=== PATIENT | female | born 1995 | race Caucasian/White ===

== ENCOUNTER → 2021-12-08 | Outpatient (CLI) | payer OTHER ==
--- NOTE | 2021-12-08 16:02 | US ---
EXAMINATION TYPE: US OB anatomy transabd DATE OF EXAM: 12/08/2021 COMPARISON: NONE HISTORY: O36.62X0 Maternal care for excessive growth, TECHNIQUE: Transabdominal (TA) EXAM MEASUREMENTS: GESTATIONAL AGE / DATING Physician Established: (21 weeks/5 days) EDC: 04/15/2022 Dates by LMP: (21 weeks/5 days) EDC: 04/15/2022 Dates by First Scan: No previous this is first scan Dates by Current Scan for: (22 weeks/2 days) EDC: 04/11/2022 SURVEY IUP: Single PLACENTA: Fundal PREVIA: No previa GAVIN: 12.5 cm Normal CERVICAL LENGTH (transabdominal: norm > 3.0cm): 4.7 cm BIOMETRY PRESENTATION: Breech BPD: 5.2 cm 21 weeks / 6 days HC: 19.4 cm 21 weeks / 5 days AC: 17.6 cm 22 weeks / 4 days FL: 3.9 cm 22 weeks / 4 days ESTIMATED WEIGHT IN GRAMS: 499 grams ESTIMATED WEIGHT IN LBS/OZ: 1 lbs. 2 oz. WEIGHT PERCENTAGE BASED ON ESTABLISHED DATE: 78 % HC/AC: 1.1 Normal FL/AC: 22% Normal HEART RATE: 150 bpm RHYTHM: Normal ANATOMY SEEN (within normal limits): * Lateral Vent (< 1 cm) 0.6 cm * Cisterna Magna (< 1.1 cm) 0.7 cm * Nuchal Fold (< 0.6 cm) 0.3 cm * Cerebellum (varies with age) 2.2 cm Choroid Plexus (bilateral) Midline Falx Cavus Septi Pellucidi Four Chamber Heart Outflow tracts: LVOT/RVOT Stomach Situs Nose / Lips Diaphragm Kidneys (bilateral) Bladder Cord Insert Three Vessel Cord Longitudinal Spine Transverse Spine Arms (bilateral) Legs (bilateral) Growth according to dates. IMPRESSION: 1. Single intrauterine gestation at 22 weeks 2 days gestation based on current ultrasound measurement s. Cardiac activity measures 150 bpm. 2. anatomy appears appropriate for the age.
== END | disposition home or self-care (01) ==
LOC: RADUSWWP 09:32
PROVIDERS: ATTEND Obstetrics & Gynecology
DX: O36.62X0 Maternal care for excessive fetal growth, second trimester, not applicable or unspecified (principal); Z3A.22 22 weeks gestation of pregnancy
CPT/HCPCS: 76811

== ENCOUNTER 2022-03-12 15:30 | Outpatient (CLI) | payer OTHER ==
--- NOTE | 2022-03-12 16:33 | US ---
EXAMINATION TYPE: US OB >= 14 wk fetus DATE OF EXAM: 03/12/2022 COMPARISON: US CLINICAL HISTORY: Complete OB ultrasound Syncopal episode for pt TECHNIQUE: Transabdominal (TA) GESTATIONAL AGE / DATING Physician Established: (35 weeks/1 days) EDC: 04/15/2022 Dates by LMP: (35 weeks/1 days) EDC: 04/15/2022 Dates by First Scan: (35 weeks/5 days) EDC: 04/11/2022 Dates by Current Scan: (36 weeks/2 days) EDC: 04/07/2022 SURVEY IUP: Single PLACENTA: Fundal PREVIA: No Previa GAVIN: 16.5 cm Normal CERVICAL LENGTH (transabdominal: norm > 3.0cm): 3.2 cm BIOMETRY PRESENTATION: Vertex BPD: 9.1 cm 36 weeks / 6 days HC: 32.4 cm 36 weeks / 5 days AC: 32.7 cm 36 weeks / 4 days FL: 7.1 cm 36 weeks / 4 days ESTIMATED WEIGHT IN GRAMS: 2988 grams ESTIMATED WEIGHT IN LBS/OZ: 6 lbs. 9 oz. WEIGHT PERCENTAGE BASED ON ESTABLISHED DATES: 86% HC/AC: 0.99 Normal FL/AC: 22 Normal HEART RATE: 135 bpm RHYTHM: Abnormal Single, viable IUP- heart arrythmia noted during exam Results given to L&D at time of exam IMPRESSION: Single viable intrauterine with limited survey. Ultrasound age 36 weeks 2 days with e stimated date of delivery 04/07/2022. Technologist reports cardiac arrhythmia.
[2022-03-12 18:22] VITALS: BP 123/79; PULSE 101; RESP 16; TEMP 97.2
--- NOTE | 2022-03-13 07:35 | P.MSEPDOC ---
Presenting Problems - Arrival Data Date of Arrival on Unit: 03/12/22 Time of Arrival on Unit: 15:30 Mode of Transport: Ambulatory - Complaint OB-Reason for Admission/Chief Complaint: Syncope/Fainting Spell Comment: Patient presents to triage because she has been feeling unwell all day today and while she was at work she almost passed out about 1 hour after eating lunch. Patient states she remains dizzy and just does not feel good. Medical History - Information : 2 Para: 0 Term: 0 : 0 Abortions: Spontaneous or Elective: 0 Number of Living Children: 0 - Gestational Age Gestational Age by RADHA (wks/days): 35 Weeks and 1 Days Review of Systems - Review of Systems Constitutional: No problems Breast: No problems ENT: No problems Cardiovascular: No problems Respiratory: No problems Gastrointestinal: No problems Genitourinary: No problems Musculoskeletal: No problems Neurological: No problems Skin: No problems Vital Signs - Temperature Temperature: 97.2 F Temperature Source: Temporal Artery Scan - Pulse Pulse Oximetery Pulse Rate: 101 Pulse Assessment Method: Pulse Oximetry - Respirations Respiratory Rate: 16 Oxygen Delivery Method: Room Air O2 Sat by Pulse Oximetry: 99 - Blood Pressure Sitting Blood Pressure: 123/79 Blood Pressure Mean: 93 Blood Pressure Source: Automatic Cuff Medical Screen Scoring - Cervical Exam Dilation (cm): 0 Effacement (%): 0 Membranes: Intact - Uterine Contractions Intensity: Mild Resting: Soft to palpation - Assessment - Baby A Baseline FHR: 135 Heart Rate - NICHD Category: Category II (Indeterminate) NST: Reactive Physician Notification - Physician Notified Physician Notified Date: 03/12/22 Physician Notified Time: 15:59 Physician: Mona Dodson New Order Received: Yes - Notification Comment Comment: Orders given to obtain a complete OB U/S and call with results. 164: Discussed with Dr. Dodson that initial NST is not Reactive, and that two late decelerations were noted with irregular contractions, Physician states okay for patient to drink water and physician will come in for evaluation after office. 180 Dr. Dodson at bedside, discusses with patient that she would like to see her in the office on Sat. for her [facility] appt to re-evaluate if the arrhythmia is still present, and then if it is to refer her to [facility] for further evaluation, patient agrees with plan. Maternal Triage Index - Non-Urgent/Priority 4 Non-Urgent Priority 4: Yes Criteria Met for Priority 4: 35 12/01 Patient presents feeling unwell at work, states she almost passed out about an hour after eating lunch and still does not feel well. Vital signs all within normal limits, arrhythmia noted on u/s. Disposition - Disposition OB Disposition: Discharge to home, Written follow up instructions reviewed Discharge Date: 03/12/22 Discharge Time: 18:11 I agree with the RN Medical Screening Exam: Yes Physician's MSE Comment: I reviewed the strips on the unit and discussed the arrhythmia with the patient and her . She has been using [employer] Misty butter regularly on her abdomen. I advised her to stop using Misty butter for the time being as this can be a cause of arrhythmia. She will follow up with me in the office in 2 days and be placed on NST in the office to further evaluate the arrhythmia. If it is still present, she will be referred to maternal medicine for further evaluation. She is advised to take it easy the rest today and drink linea fluids. Her vital signs are all within normal limits. Case reviewed; plan agreed upon as documented in EMR&OBIX.: Yes Diagnosis: SYNCOPE AND COLLAPSE Additional Diagnoses: arrhythmia
== END 2022-03-12 18:11 | disposition home or self-care (01) ==
LOC: FBPOP 15:30
PROVIDERS: ATTEND Obstetrics & Gynecology
DX: O26.893 Other specified pregnancy related conditions, third trimester (principal); Z3A.35 35 weeks gestation of pregnancy
CPT/HCPCS: 59025; 76805; 99213

== ENCOUNTER 2022-03-20 11:30 | Outpatient (CLI) | payer OTHER ==
[2022-03-20] MEDS ORDERED: BETAMET ACET-BETAMETH SOD PHOS 6 MG/ML MDV IM SCH (11:45)
--- NOTE | 2022-03-21 07:43 | P.MSEPDOC ---
Presenting Problems - Arrival Data Date of Arrival on Unit: 03/20/22 Time of Arrival on Unit: 11:30 Mode of Transport: Ambulatory - Complaint OB-Reason for Admission/Chief Complaint: Celestone Injection Medical History - Information : 2 Para: 0 Term: 0 : 0 Abortions: Spontaneous or Elective: 1 Number of Living Children: 0 - Gestational Age Gestational Age by RADHA (wks/days): 36 Weeks and 2 Days Review of Systems - Review of Systems Constitutional: No problems Breast: No problems ENT: No problems Cardiovascular: No problems Respiratory: No problems Gastrointestinal: No problems Genitourinary: No problems Musculoskeletal: No problems Neurological: No problems Skin: No problems Maternal Triage Index - Maternal Triage Index Presenting for scheduled procedure w/no complaint: Yes - Scheduled/Requesting Priority 5 Scheduled/Requesting Priority 5: Yes Criteria Met for Priority 5: pt presents to triage with written orders for 2nd betamethasone injection Disposition - Disposition OB Disposition: Triage, Discharge to home Discharge Date: 03/20/22 Discharge Time: 11:55 I agree with the RN Medical Screening Exam: Yes Case reviewed; plan agreed upon as documented in EMR&OBIX.: Yes Diagnosis: MATERNAL CARE FOR OTH PROBLEMS, THIRD TRIMESTER, UNSP
== END 2022-03-20 11:55 | disposition home or self-care (01) ==
LOC: FBPOP 11:30
PROVIDERS: ATTEND Obstetrics & Gynecology
DX: O36.8930 Maternal care for other specified fetal problems, third trimester, not applicable or unspecified (principal); Z3A.36 36 weeks gestation of pregnancy
CPT/HCPCS: 96372; J0702

== ENCOUNTER 2022-04-02 09:58 | Outpatient (CLI) | payer OTHER ==
[2022-04-02 11:07] VITALS: BP 111/71; PULSE 87; RESP 16; TEMP 97.2
--- NOTE | 2022-04-02 11:23 | US ---
EXAMINATION TYPE: US OB BPP wo non-stress DATE OF EXAM: 04/02/2022 COMPARISON: Prior ultrasound March 12, 2022 CLINICAL HISTORY: Arrhythmia. EXAM PERFORMED: Transabdominal (TA) BPP PARAMETERS: PRESENTATION: vertex HEART RATE: 144 bpm RHYTHM: Arrhythmia seen previously, not appreciated on today's exam GAVIN: 12.1 DIAPHRAGM IMAGED: BPP SCORIN. Breathin (1 episode of breathing of 30 second duration in 30 minutes of scanning time) 2. Movement: 2 (at least 3 discrete body movements in 30 minutes) 3. Tone: 2 (1 episode of active flexion/extension of limb) 4. GAVIN: 2 (GAVIN index > 5cm) TOTAL SCORE: 8 / 8 Impression: Normal real-time NST.
== END 2022-04-02 10:58 | disposition home or self-care (01) ==
LOC: FBPOP 09:58
PROVIDERS: ATTEND Obstetrics & Gynecology
DX: O36.8390 Maternal care for abnormalities of the fetal heart rate or rhythm, unspecified trimester, not applicable or unspecified (principal); Z3A.00 Weeks of gestation of pregnancy not specified
CPT/HCPCS: 59025; 76819

== ENCOUNTER 2022-04-17 01:01 | Outpatient (CLI) | payer OTHER ==
[2022-04-17 02:48] VITALS: BP 123/67; PULSE 72; RESP 16; TEMP 96.4
--- NOTE | 2022-04-18 07:39 | P.MSEPDOC ---
Presenting Problems - Arrival Data Date of Arrival on Unit: 04/17/22 Time of Arrival on Unit: 01:01 Mode of Transport: Ambulatory - Complaint OB-Reason for Admission/Chief Complaint: Possible Onset of Labor Comment: Patient arrives to triage and states she has been having contractions since. 9pm. She states contractions are currently 4.5 minutes apart. Patient appears. comfortable at this time. Patient had a cervical exam on and was 0.5cm. dilitated. Medical History - Information : 2 Para: 0 Term: 0 : 0 Abortions: Spontaneous or Elective: 1 Number of Living Children: 0 - Gestational Age Gestational Age by RADHA (wks/days): 40 Weeks and 2 Days - History Complications: No Care Review of Systems - Review of Systems Constitutional: No problems Breast: No problems ENT: No problems Cardiovascular: No problems Respiratory: No problems Gastrointestinal: No problems Genitourinary: No problems Musculoskeletal: No problems Neurological: No problems Skin: No problems Vital Signs - Temperature Temperature: 96.4 F Temperature Source: Temporal Artery Scan - Pulse Right Brachial Pulse Rate: 72 Pulse Assessment Method: Automatic Cuff - Respirations Respiratory Rate: 16 Oxygen Delivery Method: Room Air - Blood Pressure Right Arm Blood Pressure: 123/67 Blood Pressure Mean: 85 Blood Pressure Source: Automatic Cuff Medical Screen Scoring - Cervical Exam Dilation (cm): 0.5 Station: -3 Membranes: Intact - Uterine Contractions Frequency From (mins): 3 Frequency To (mins): 7 Duration From (seconds): 60 Duration To (seconds): 90 Intensity: Mild Resting: Soft to palpation - Assessment - Baby A Baseline FHR: 135 Heart Rate - NICHD Category: Category I (Normal) NST: Reactive Physician Notification - Physician Notified Physician Notified Date: 04/17/22 Physician Notified Time: 02:21 Physician: Angélica Leach New Order Received: Yes - Notification Comment Comment: RN spoke with Dr. Leach. RN reported that patient was ulysses every 4-7. minutes, reactive NST, cervical exam of 0.5, thick and high unchanged after one hour. Patient was sleeping in exam room before second cervical exam. Patient reports feeling. more comfortable. Patient is to be discharged with instructions to return if. contractions increase in strength or frequency. Patient is scheduled for cevidil. induction on 04/18. Patient updated on plan Maternal Triage Index - Maternal Triage Index Presenting for scheduled procedure w/no complaint: No - Stat/Priority 1 Stat Priority 1: No - Urgent/Priority 2 Urgent Priority 2: No - Prompt/Priority 3 Prompt Priority 3: No - Non-Urgent/Priority 4 Non-Urgent Priority 4: Yes Criteria Met for Priority 4: >37 weeks early labor signs Disposition - Disposition OB Disposition: Discharge to home Discharge Date: 04/17/22 Discharge Time: 02:40 I agree with the RN Medical Screening Exam: Yes Case reviewed; plan agreed upon as documented in EMR&OBIX.: Yes Diagnosis: PRIMARY INADEQUATE CONTRACTIONS
== END 2022-04-17 02:40 | disposition home or self-care (01) ==
LOC: FBPOP 01:01
PROVIDERS: ATTEND Obstetrics & Gynecology
DX: O62.0 Primary inadequate contractions (principal); Z3A.40 40 weeks gestation of pregnancy
CPT/HCPCS: 59025; 99213

== ENCOUNTER 2022-04-18 17:00 | Inpatient (IN) | payer OTHER ==
--- NOTE | 2022-04-18 13:53 | P.HPOB ---
History of Present Illness H&P Date: 04/18/22 Chief Complaint: arrhythmia This is a 26 y.o. female, 2, para 0, with an estimated date of confinement of 04/15/2022, estimated gestational age of 40-3/7 weeks, who presents for induction of labor due to postdates and arrhythmia. She was diagnosed with arrhythmia at 35 weeks and was seen by MFM who did echo that was normal. They are recommending a EKG. arrhythmia has mostly resolved at this time. She did receive 2 doses of steroids at around 35 weeks. labs: Hemoglobin-12.9 Blood type-O+ Antibody screen-neg HIV-NR Random glucose-63 RPR-NR Hepatitis B surface antigen-neg Rubella-immune Quad-neg 1 hr. GTT-118. GBS-neg OB Hx: . History of ectopic. Hx R. salpingectomy-2019 [employer] Hx: No hx STDs. Social Hx: . Works part-time Review of Systems Constitutional: Denies chills, Denies fever Eyes: denies blurred vision, denies pain Ears, nose, mouth and throat: Denies headache, Denies sore throat Cardiovascular: Denies chest pain, Denies shortness of breath Respiratory: Denies cough Gastrointestinal: Reports abdominal pain (irregular contractions) Genitourinary: Reports pelvic pain, Reports Musculoskeletal: Reports low back pain Integumentary: Denies pruritus, Denies rash Neurological: Denies numbness, Denies weakness Psychiatric: Reports anxiety, Reports depression Past Medical History Additional Past Medical History / Comment(s): PTSD; Hx cleft palate History of Any Multi-Drug Resistant Organisms: None Reported Past Surgical History: Cholecystectomy Additional Past Surgical History / Comment(s): Repair of cleft palate; R. salpingectomy Past Anesthesia/Blood Transfusion Reactions: No Reported Reaction Past Psychological History: PTSD Smoking Status: Never smoker Past Alcohol Use History: None Reported Past Drug Use History: None Reported - Past Family History Father Family Medical History: Hyperlipidemia, Hypertension Medications and Allergies Home Medications Medication Instructions Recorded Confirmed Type Pnv No.95/Ferrous Fum/Folic AC 1 each PO DAILY 03/12/22 04/17/22 History [ Multivitamin Tablet] Sertraline [Zoloft] 25 mg PO BID 03/12/22 04/17/22 History Allergies Allergy/AdvReac Type Severity Reaction Status Date / Time Penicillins Allergy Unknown Verified 04/17/22 01:02 Childhood shellfish derived [Shellfish] Allergy Rash/Hives Verified 04/17/22 01:02 Exam Osteopathic Statement: *. No significant issues noted on an osteopathic structural exam other than those noted in the History and Physical/Consult. HEENT: within normal limits Heart: regular rate and rhythm Lungs: clear to auscultation bilaterally Abdomen: Cervix: FT/70%/-2 heart tones: 140's by doppler Extremities: neg. Judit's Assessment and Plan (1) 40 weeks gestation of Status: Acute Code(s): Z3A.40 - 40 WEEKS GESTATION OF SNOMED Code(s): 61457849 (2) Arrhythmia of fetus affecting management of Status: Acute Code(s): O36.8390 - MATERN CARE FOR ABNLT FETL HRT RATE OR RHYM, UNSP TRI, UNSP SNOMED Code(s): 753307553 Plan: Admission for cervidil cervical ripening followed by oxytocin induction of labor. Expectant management.
[2022-04-18] MEDS ORDERED: BUTORPHANOL 1 MG/ML 1 ML VIAL IV PRN (17:28)
[2022-04-18] MEDS ORDERED: ZOLPIDEM 5 MG TAB PO PRN (17:28)
[2022-04-18] MEDS ORDERED: DINOPROSTONE 10 MG INSERT.ER VAGINAL ONE (17:45)
[2022-04-19] MEDS ORDERED: PRENATAL VIT-IRON-FOLIC ACID 1 EACH TABLET PO SCH (09:00)
== END 2022-04-18 18:21 | disposition home or self-care (01) | DRG 833 ==
LOC: 4FBP 17:20
PROVIDERS: ADMIT Obstetrics & Gynecology; ATTEND Obstetrics & Gynecology
PROC: 4A0HXCZ Measurement of Products of Conception, Cardiac Rate, External Approach (ICD-10-PCS; principal; 2022-04-18)
DX: O36.8330 Maternal care for abnormalities of the fetal heart rate or rhythm, third trimester, not applicable or unspecified (principal); O99.343 Other mental disorders complicating pregnancy, third trimester; F43.10 Post-traumatic stress disorder, unspecified; Z3A.40 40 weeks gestation of pregnancy; Z79.899 Other long term (current) drug therapy; Z87.730 Personal history of (corrected) cleft lip and palate; Z88.0 Allergy status to penicillin; Z91.013 Allergy to seafood; Z87.59 Personal history of other complications of pregnancy, childbirth and the puerperium; Z90.49 Acquired absence of other specified parts of digestive tract

== ENCOUNTER 2022-04-19 06:03 | Inpatient (IN) | payer OTHER ==
[2022-04-19] MEDS ORDERED: LIDOCAINE 0.5% (PF) 5 MG/ML (50 ML SDV) SQ PRN (06:14)
[2022-04-19] MEDS ORDERED: CARBOPROST TROMETHAMINE 250 MCG/ML 1 ML AMP IM PRN (06:14)
[2022-04-19] MEDS ORDERED: TERBUTALINE 1 MG/ML VIAL SQ PRN (06:14)
[2022-04-19] MEDS ORDERED: METHYLERGONOVINE 0.2 MG/ML 1 ML AMP IM PRN (06:14)
[2022-04-19] MEDS ORDERED: OXYTOCIN 10 UNIT/ML 1 ML VIAL IM PRN (06:14)
[2022-04-19] MEDS ORDERED: OXYTOCIN 30 UNITS/500 ML NS 30 UNIT in SALINE 1 500ML.BAG IV SCH ×2 (06:15→19:28)
[2022-04-19 06:24] VITALS: RESP 16
[2022-04-19 06:25] LABS: Basophils # (A) 0.1 k/uL (0-0.2); Basophils % (A) 1 %; Eosinophils # (A) 0.2 k/uL (0-0.7); Eosinophils % (A) 1 %; HCT 34.7 % (34.0-46.0); HGB 11.7 gm/dL (11.4-16.0); Lymphocytes # (A) 2.6 k/uL (1.0-4.8); Lymphocytes % (A) 21 %; MCH 31.6 pg (25.0-35.0); MCHC 33.6 g/dL (31.0-37.0); Mean Platelet Volume 8.5; Monocytes # (A) 0.7 k/uL (0-1.0); Monocytes % (A) 6 %; Neutrophils # (A) 8.9 k/uL (1.3-7.7); Neutrophils % (A) 71 %; Platelet Count 223 k/uL (150-450); RBC 3.69 m/uL (3.80-5.40); RDW 14.5 % (11.5-15.5); WBC 12.7 k/uL (3.8-10.6)
[2022-04-19] MEDS: LACTATED RINGERS 1,000 ML IV SCH ×2 (06:34→10:50)
[2022-04-19] MEDS ORDERED: BUTORPHANOL 1 MG/ML 1 ML VIAL IV PRN (07:30)
[2022-04-19] MEDS ORDERED: SODIUM CHLORIDE 0.9% 100 ML BAG ONE (10:54)
[2022-04-19] MEDS ORDERED: BUPIVACAINE (PF) 0.25% 30 ML VIAL ONE (10:54)
[2022-04-19] MEDS ORDERED: fentaNYL (PF) 50 MCG/ML 5 ML AMP ONE (10:54)
--- NOTE | 2022-04-19 17:48 | P.HPOB ---
History of Present Illness H&P Date: 04/19/22 Please see history and physical dated 04/18/2022. Patient was admitted for Cervidil cervical ripening on 04/18/2022 however was found to be dilated and therefore sent home overnight to return in the morning for oxytocin induction of labor. Her cervix at that time was noted to be 1-2 cm/60%/-2 station. She returned this morning for oxytocin induction of labor. All other history remains the same. Past Medical History Additional Past Medical History / Comment(s): PTSD; Hx cleft palate History of Any Multi-Drug Resistant Organisms: None Reported Past Surgical History: Cholecystectomy Additional Past Surgical History / Comment(s): Repair of cleft palate; R. salpingectomy Past Anesthesia/Blood Transfusion Reactions: No Reported Reaction Past Psychological History: PTSD Smoking Status: Never smoker Past Alcohol Use History: None Reported Past Drug Use History: None Reported - Past Family History Father Family Medical History: Hyperlipidemia, Hypertension Medications and Allergies Home Medications Medication Instructions Recorded Confirmed Type Pnv No.95/Ferrous Fum/Folic AC 1 each PO DAILY 03/12/22 04/19/22 History [ Multivitamin Tablet] Sertraline [Zoloft] 25 mg PO BID 03/12/22 04/19/22 History Allergies Allergy/AdvReac Type Severity Reaction Status Date / Time Penicillins Allergy Unknown Verified 04/19/22 06:14 Childhood shellfish derived [Shellfish] Allergy Rash/Hives Verified 04/19/22 06:14 Exam Osteopathic Statement: *. No significant issues noted on an osteopathic structural exam other than those noted in the History and Physical/Consult. Vital Signs Temp Pulse Resp BP Pulse Ox 04/19/22 06:13 97.0 F L 81 16 132/75 99 Intake and Output 04/19/22 04/19/22 04/19/22 06:59 14:59 22:59 Output Total 200 Balance -200 Output: Urine 200 Other: Weight 88.313 kg heart tones are category 1 with irregular contractions Results Result Diagrams: 04/19/22 06:10 Abnormal Lab Results - Last 24 Hours (Table) 04/19/22 Range/Units 06:10 WBC 12.7 H (3.8-10.6) k/uL RBC 3.69 L (3.80-5.40) m/uL Neutrophils # 8.9 H (1.3-7.7) k/uL Assessment and Plan (1) 40 weeks gestation of Current Visit: No Status: Acute Code(s): Z3A.40 - 40 WEEKS GESTATION OF SNOMED Code(s): 97620847 (2) Arrhythmia of fetus affecting management of Current Visit: No Status: Acute Code(s): O36.8390 - MATERN CARE FOR ABNLT FETL HRT RATE OR RHYM, UNSP TRI, UNSP SNOMED Code(s): 352888723 Plan: Admission for oxytocin induction of labor. Epidural anesthesia if desired. Expectant management.
[2022-04-19] MEDS ORDERED: ZOLPIDEM 5 MG TAB PO PRN (19:28)
[2022-04-19] MEDS ORDERED: SIMETHICONE 80 MG CHEWABLE PO PRN (19:28)
[2022-04-19] MEDS ORDERED: diphenhydrAMINE 50 MG/ML 1 ML VIAL IVP PRN ×2 (19:28)
[2022-04-19] MEDS ORDERED: HYDROCORTISONE 2.5% RECTAL CREAM 30 GM TUBE RECTAL PRN (19:28)
[2022-04-19] MEDS ORDERED: diphenhydrAMINE 50 MG CAP PO PRN (19:28)
[2022-04-19] MEDS ORDERED: LANOLIN CREAM 5 GM TUBE TOPICAL PRN (19:28)
[2022-04-19] MEDS ORDERED: diphenhydrAMINE 25 MG CAP PO PRN (19:28)
[2022-04-19] MEDS ORDERED: ACETAMINOPHEN TAB 325 MG TAB PO PRN (19:28)
[2022-04-19] MEDS ORDERED: BENZOCAINE/MENTHOL SPRAY 1 GM/SPRAY AEROSOL TOPICAL PRN (19:28)
--- NOTE | 2022-04-19 19:46 | P.PROBDLV ---
Vaginal Delivery Note - . Vaginal Delivery Note: The patient progressed to complete dilation after oxytocin induction of labor and artificial rupture membranes with meconium fluid noted. She did receive epidural anesthesia. Once reaching complete, she began pushing. She pushed for approximately 2 hours. Infant's head came to a crown. With one further push, the infant's head delivered across the perineum followed by the anterior shoulder. She was instructed to stop pushing. Nose and mouth were bulb suctioned at the perineum. With one further push the remainder the infant easily delivered and was placed on mother's abdomen. Nuchal cord times one was reduced around the body with delivery. Infant was then placed on mother's abdomen and cord was clamped and cut. It was then taken to warmer for evaluation by nursing staff. A viable male infant is noted with N infant weight of 9 lbs. 3 oz. scores are pending at this time. Placenta delivered shortly thereafter, intact, with a three-vessel cord. Uterus contracted fairly well after oxytocin was given and uterine massage was carried out. Inspection of the perineum revealed a second-degree perineal laceration and a left periurethral laceration. These areas were anesthetized with 1% lidocaine and then sutured with 3-0 and 2-0 Vicryl suture in the usual multilayer fashion. Estimated blood loss is approximately 200 mL's. Mother and infant are in stable condition.
[2022-04-19] MEDS: SENNOSIDES-DOCUSATE SODIUM 1 EACH TAB PO SCH (21:03)
[2022-04-19] MEDS: SERTRALINE 25 MG TAB PO SCH (21:04)
[2022-04-20] MEDS: IBUPROFEN 600 MG TAB PO PRN ×2 (05:23→13:50)
[2022-04-20 07:19] LABS: Basophils % (A) 0 %; Eosinophils # (A) 0.1 k/uL (0-0.7); Eosinophils % (A) 0 %; HCT 32.7 % (34.0-46.0); HGB 10.9 gm/dL (11.4-16.0); Lymphocytes % (A) 10 %; MCH 31.8 pg (25.0-35.0); MCHC 33.5 g/dL (31.0-37.0); Mean Platelet Volume 8.7; Monocytes # (A) 1.2 k/uL (0-1.0); Monocytes % (A) 6 %; Neutrophils # (A) 17.1 k/uL (1.3-7.7); Neutrophils % (A) 83 %; Platelet Count 189 k/uL (150-450); RBC 3.44 m/uL (3.80-5.40); RDW 14.5 % (11.5-15.5); WBC 20.5 k/uL (3.8-10.6)
--- NOTE | 2022-04-20 08:38 | P.DS ---
Providers Date of admission: 04/19/22 06:03 Expected date of discharge: 04/20/22 Attending physician: Mona Dodson Primary care physician: Stated None - Discharge Diagnosis(es) (1) 40 weeks gestation of Current Visit: No Status: Acute (2) Arrhythmia of fetus affecting management of Current Visit: No Status: Acute Hospital Course: This is a 26-year-old female 2 para 0 at 40-4/7 weeks who presented for induction of labor. She underwent oxytocin induction of labor and delivered vaginally a viable male with scores of 4 at 1 minute 8 at 5 minutes and 9 at 10 minutes with infant weight of 9 lbs. 3 oz. and nuchal cord times one on 04/19/2022. Her course has been uncomplicated. Baby is breast- feeding well. Lochia is minimal. Pain is fairly well controlled. Vital signs are stable. Abdomen is soft with fundus firm and nontender. Extremities show negative Homans. Impression is status post vaginal delivery day #1. Plan is to discharge home later today as long as they became go home routine instructions are given. She has a breast pump at home. She will be given a prescription for ibuprofen. She is advised to follow up in the office in 6 weeks for check. She is advised to call the office if she has any further questions or concerns prior to her point in time. Procedures: Oxytocin induction of labor Spontaneous vaginal delivery of a viable male infant on 04/19/2022 Patient Condition at Discharge: Stable Plan - Discharge Summary New Discharge Prescriptions: New Ibuprofen [Motrin] 600 mg PO Q6HR PRN #60 tab PRN Reason: Mild Pain (Scale 1 To 3) Continue Sertraline [Zoloft] 25 mg PO BID Pnv No.95/Ferrous Fum/Folic AC [ Multivitamin Tablet] 1 each PO DAILY Discharge Medication List Pnv No.95/Ferrous Fum/Folic AC [ Multivitamin Tablet] 1 each PO DAILY 03/12/22 [History] Sertraline [Zoloft] 25 mg PO BID 03/12/22 [History] Ibuprofen [Motrin] 600 mg PO Q6HR PRN #60 tab 04/20/22 [Rx] Follow up Appointment(s)/Referral(s): Mona Dodson DO [Doctor of Osteopathic Medicine] - 06/04/22 11:30 am Activity/Diet/Wound Care/Special Instructions: Instructions 1. Do not begin any exercise program for 3 weeks. 2. Do not resume sexual relations for 3 weeks or longer if uncomfortable. 3. You may take tub baths or showers at any time. 4. You may use tampons if desired after 3 weeks. 5. Keep the area of episiotomy (stitches) clean and dry. 6. If you are not nursing, wear a good fitting, supportive bra during the day and limit fluid intake for at least 1 week to prevent breast engorgement. 7. Call the office, [phone], within the next week to make appointment for your 6 week checkup if it has not already been made. 8. Report any of the following occurrences to the doctor promptly: a. Heavy, excessive bleeding b. Chills, fever c. Burning or frequency of urination d. Pain or redness and breasts if nursing e. Increasing pain or swelling in episiotomy (stitches). In addition to the above instructions, the following additional should be followed: 1. No heavy lifting or straining (exercising) until after 6 week checkup. 2. Keep abdominal incision clean and dry: You may wear a dressing if more comfortable. 3. Make office appointment for 10 days after going home or as instructed by her doctor. Discharge Disposition: HOME SELF-CARE
[2022-04-20] MEDS ORDERED: PRENATAL VIT-IRON-FOLIC ACID 1 EACH TABLET PO SCH (09:00)
[2022-04-20] MEDS: SENNOSIDES-DOCUSATE SODIUM 1 EACH TAB PO SCH ×2 (09:18→21:43)
[2022-04-20] MEDS: SERTRALINE 25 MG TAB PO SCH ×2 (09:18→21:41)
[2022-04-20 18:32] VITALS: BP 108/69; PULSE 87; TEMP 97.9
== END 2022-04-20 22:18 | disposition home or self-care (01) | DRG 807 ==
LOC: 4FBP 06:03
PROVIDERS: ADMIT Obstetrics & Gynecology; ATTEND Obstetrics & Gynecology
PROC: 3E033VJ Introduction of Other Hormone into Peripheral Vein, Percutaneous Approach (ICD-10-PCS; principal; 2022-04-19)
PROC: 0KQM0ZZ Repair Perineum Muscle, Open Approach (ICD-10-PCS; principal; 2022-04-19)
PROC: 0UQMXZZ Repair Vulva, External Approach (ICD-10-PCS; principal; 2022-04-19)
PROC: 10907ZC Drainage of Amniotic Fluid, Therapeutic from Products of Conception, Via Natural or Artificial Opening (ICD-10-PCS; principal; 2022-04-19)
PROC: 4A0HXCZ Measurement of Products of Conception, Cardiac Rate, External Approach (ICD-10-PCS; principal; 2022-04-19)
PROC: 10E0XZZ Delivery of Products of Conception, External Approach (ICD-10-PCS; principal; 2022-04-19)
DX: O69.89X0 Labor and delivery complicated by other cord complications, not applicable or unspecified (principal); Z37.0 Single live birth; O76 Abnormality in fetal heart rate and rhythm complicating labor and delivery; O70.1 Second degree perineal laceration during delivery; O71.82 Other specified trauma to perineum and vulva; F43.10 Post-traumatic stress disorder, unspecified; O77.0 Labor and delivery complicated by meconium in amniotic fluid; O99.344 Other mental disorders complicating childbirth; Z3A.40 40 weeks gestation of pregnancy; Z79.899 Other long term (current) drug therapy; Z87.730 Personal history of (corrected) cleft lip and palate; Z90.49 Acquired absence of other specified parts of digestive tract; Z88.0 Allergy status to penicillin; Z91.013 Allergy to seafood
CPT/HCPCS: 85025; 86850; 86900; 86901

== ENCOUNTER 2023-10-27 21:22 | Emergency (ER) | payer OTHER ==
[2023-10-27 21:38] VITALS: BP 139/97; PULSE 92; RESP 18; TEMP 97.5
[2023-10-27 22:58] LABS: Appearance,Urine Clear (Clear); Bacteria,Urine Occasional /hpf; Color,Urine Light Yellow; Mucus,Urine Rare /hpf; RBC,Urine 1 /hpf (0-5); Squamous Epithelial Cell,Urine 13 /hpf (0-4); WBC,Urine 6 /hpf (0-5)
[2023-10-27 22:59] LABS: Bilirubin,Urine Negative (Negative); Blood,Urine Negative (Negative); Glucose,Urine (UA) Negative (Negative); Ketones,Urine Negative (Negative); Leukocyte Esterase,Urine Moderate (Negative); Nitrite,Urine Negative (Negative); PH, Urine 6.5 (5.0-8.0); Protein,Urine Negative (Negative); Specific Gravity,Urine 1.015 (1.001-1.035); Urobilinogen,Urine <2.0 mg/dL (<2.0)
[2023-10-27 23:27] LABS: Basophils % (A) 0 %; Eosinophils # (A) 0.2 k/uL (0-0.7); Eosinophils % (A) 1 %; HCT 38.5 % (34.0-46.0); HGB 13.4 gm/dL (11.4-16.0); Lymphocytes # (A) 2.3 k/uL (1.0-4.8); Lymphocytes % (A) 17 %; MCH 31.5 pg (25.0-35.0); MCHC 34.8 g/dL (31.0-37.0); MCV 90.5 fL (80.0-100.0); Mean Platelet Volume 7.5; Monocytes # (A) 0.4 k/uL (0-1.0); Monocytes % (A) 3 %; Neutrophils # (A) 10.7 k/uL (1.3-7.7); Neutrophils % (A) 78 %; Platelet Count 233 k/uL (150-450); RBC 4.26 m/uL (3.80-5.40); RDW 13.7 % (11.5-15.5); WBC 13.8 k/uL (3.8-10.6)
[2023-10-27 23:42] LABS: ALT 10 U/L (4-34); AST 20 U/L (14-36); African American GFR (CKD) >90 (>60 ml/min/1.73 sqM); Albumin 4.2 g/dL (3.5-5.0); Alkaline Phosphatase 52 U/L (38-126); Anion Gap 12 mmol/L; Blood Urea Nitrogen 8 mg/dL (7-17); Calcium 9.5 mg/dL (8.4-10.2); Carbon Dioxide 16 mmol/L (22-30); Chloride 107 mmol/L (98-107); Glucose 81 mg/dL (74-99); Non-African American GFR(CKD) >90 (>60 ml/min/1.73 sqM); Potassium 3.6 mmol/L (3.5-5.1); Sodium 135 mmol/L (137-145); Total Bilirubin 0.6 mg/dL (0.2-1.3); Total Protein 7.2 g/dL (6.3-8.2)
[2023-10-27 23:46] LABS: INR 0.9 (<1.2); Prothrombin Time 9.6 sec (10.0-12.5)
[2023-10-27 23:47] LABS: Partial Thromboplastin Time 25.2 sec (22.0-30.0)
--- NOTE | 2023-10-28 01:31 | US ---
EXAM: US Second or Third Trimester , Transabdominal CLINICAL HISTORY: ITS.REASON US Reason: pain TECHNIQUE: Real-time transabdominal obstetrical ultrasound of the maternal pelvis and a second or third trimester with image documentation. COMPARISON: No relevant prior studies available. FINDINGS: Fetus: Heart rate: 146 BPM Presentation: Placenta: Unremarkable. No abruption. Amniotic fluid: Unremarkable. Anatomy: Intracranial/face anatomy not seen. Spinal anatomy not seen. Abdominal anatomy not seen. Extremities not seen. Four-chamber heart not seen. Umbilical cord not seen. BIOMETRICS Gestational age: 17 weeks 5 days RADHA: 03/30/2024 EFW: 206.35 g 30.95 g BPD: 3.94cm yielding an estimated gestational age of 18 weeks 0 days HC: 14.87 cm yielding an estimated gestational age of 18 weeks 0 days AC: 11.63 yielding an estimated gestational age of 17 weeks 3 days FL: 2.62 yielding estimated gestational age of 18 weeks MATERNAL: Uterus: Unremarkable. No myometrial mass. Cervix: Unremarkable as visualized. Closed. Free fluid: No free fluid. IMPRESSION: Normal intrauterine gestation.
[2023-10-28] MEDS ORDERED: ONDANSETRON 4 MG ODT STARTER PACK 2 TAB BTL PO STA (01:56)
[2023-10-28] MEDS ORDERED: ONDANSETRON ODT 4 MG TAB PO STA (01:56)
--- NOTE | 2023-10-28 01:58 | ED ---
Abdominal Pain HPI - General Chief Complaint: Abdominal Pain Stated Complaint: 18 weeks preg/cramping Time Seen by Provider: 10/28/23 01:38 Source: patient Mode of arrival: ambulatory Limitations: no limitations - History of Present Illness Initial Comments: 27-year-old female presenting with chief complaint of abdominal pain. Patient is currently 18 weeks . Pain is cramping sensation in the lower abdomen. She admits to nausea and vomiting. No fevers or chills. No dysuria, hematuria, flank pain. No vaginal bleeding. Her QA DEVELOPER is Dr. Fox - Related Data Home Medications Medication Instructions Recorded Confirmed Pnv No.95/Ferrous Fum/Folic AC 1 each PO DAILY 03/12/22 04/19/22 [ Multivitamin Tablet] Sertraline [Zoloft] 25 mg PO BID 03/12/22 04/19/22 Previous Rx's Medication Instructions Recorded Ibuprofen [Motrin] 600 mg PO Q6HR PRN #60 tab 04/20/22 Ondansetron Odt [Zofran Odt] 4 mg PO Q8HR PRN #20 tab 10/28/23 Allergies Allergy/AdvReac Type Severity Reaction Status Date / Time Penicillins Allergy Unknown Verified 04/19/22 06:14 Childhood shellfish derived [Shellfish] Allergy Rash/Hives Verified 04/19/22 06:14 Review of Systems ROS Statement: Those systems with pertinent positive or pertinent negative responses have been documented in the HPI. ROS Other: All systems not noted in ROS Statement are negative. Past Medical History Additional Past Medical History / Comment(s): PTSD; Hx cleft palate History of Any Multi-Drug Resistant Organisms: None Reported Past Surgical History: Cholecystectomy Additional Past Surgical History / Comment(s): Repair of cleft palate; R. salpingectomy Past Anesthesia/Blood Transfusion Reactions: No Reported Reaction Past Psychological History: PTSD Smoking Status: Never smoker Past Alcohol Use History: None Reported Past Drug Use History: None Reported - Past Family History Father Family Medical History: Hyperlipidemia, Hypertension General Exam Limitations: no limitations General appearance: alert, in no apparent distress Head exam: Present: atraumatic, normocephalic, normal inspection Eye exam: Present: normal appearance, EOMI Neck exam: Present: normal inspection, full ROM Respiratory exam: Present: normal lung sounds bilaterally. Absent: respiratory distress, wheezes, rales, rhonchi, stridor Cardiovascular Exam: Present: regular rate, normal rhythm, normal heart sounds. Absent: systolic murmur, diastolic murmur, rubs, gallop, clicks Extremities exam: Present: normal inspection, full ROM Neurological exam: Present: alert, oriented X3 Psychiatric exam: Present: normal affect, normal mood Skin exam: Present: warm, dry, intact, normal color. Absent: rash Course Vital Signs 10/27/23 21:24 Temperature 97.5 F L Pulse Rate 92 Respiratory 18 Rate Blood Pressure 139/97 O2 Sat by Pulse 99 Oximetry Medical Decision Making - Medical Decision Making Was pt. sent in by a medical professional or institution (, PA, LIGHT ARMORED RECONNAISSANCE OFFICER, urgent care, hospital, or [place] health care facility...) When possible be specific @ -No Did you speak to anyone other than the patient for history (EMS, parent, family, police, friend...)? What history was obtained from this source @ -No Did you review nursing and triage notes (agree or disagree)? Why? @ -I reviewed and agree with nursing and triage notes Were old charts reviewed (outside hosp., previous admission, EMS record, old EKG, old radiological studies, urgent care reports/EKG's, [place] health care facility records)? Report findings @ -No old charts were reviewed Differential Diagnosis (chest pain, altered mental status, abdominal pain women, abdominal pain men, vaginal bleeding, weakness, fever, dyspnea, syncope, headache, dizziness, GI bleed, back pain, seizure, CVA, palpatations, mental health, musculoskeletal)? @ -MDM Differential Abdominal Pain Women: Appendicitis, Cholecystitis, diverticulosis, ischemic bowel, pancreatitis, hepatitis, UTI, gastroenteritis, AAA, incarcerated hernia, bowel obstruction, constipation, inflammatory bowel, hepatitis, peptic ulcer disease, splenic infarction, perforated viscus, vulvitis, ovarian torsion, PID, kidney stone, placenta abruption... This is not meant to be an all-inclusive list EKG interpreted by me (3pts min.). @ -As above X-rays interpreted by me (1pt min.). @ -None done CT interpreted by me (1pt min.). @ -None done U/S interpreted by me (1pt. min.). @ -Ultrasound shows normal intrauterine gestation What testing was considered but not performed or refused? (CT, X-rays, U/S, labs)? Why? @ -None What meds were considered but not given or refused? Why? @ -None Did you discuss the management of the patient with other professionals (prasanth philip i.e., Dr., PA, LIGHT ARMORED RECONNAISSANCE OFFICER, lab, RT, psych nurse, sexual assault social worker, blockman, teacher, airfield engineer officer, field nurse case manager)? Give summary @ -No Was smoking cessation discussed for >3mins.? @ -No Was critical care preformed (if so, how long)? @ -No Were there social determinants of health that impacted care today? How? (Homelessness, low income, unemployed, alcoholism, drug addiction, transportation, low edu. Level, literacy, decrease access to med. care, group home, rehab)? @ -No Was there de-escalation of care discussed even if they declined (Discuss DNR or withdrawal of care, Hospice)? DNR status @ -No What co-morbidities impacted this encounter? (DM, HTN, Smoking, COPD, CAD, Cancer, CVA, ARF, Chemo, Hep., AIDS, mental health diagnosis, sleep apnea, morbid obesity)? @ -None Was patient admitted / discharged? Hospital course, mention meds given and route, prescriptions, significant lab abnormalities, going to OR and other pertinent info. @ -27-year-old female currently 18 weeks presenting with chief complaint of abdominal pain. No vaginal bleeding. She admits to nausea and vomiting. History and physical exam were conducted. WBC 13.8, likely reactive. HCG is WNL. Urine shows signs of contamination. Patient is blood type O positive. Ultrasound shows normal intrauterine gestation. Her WNL. Patient is educated on today's findings and supportive management at home. She'll be sent home with Rhea and instructed to follow-up with her QA DEVELOPER. Follow-up with PCP. Report back to ER with any new or worsening symptoms. Discussed return parameters and answered all questions. Patient conveyed verbal understanding and agreed to the plan. I discussed this case in detail with my attending Dr. Choudhury Undiagnosed new problem with uncertain prognosis? @ -No Drug Therapy requiring intensive monitoring for toxicity (Heparin, Nitro, Insulin, Cardizem)? @ -No Were any procedures done? @ -No Diagnosis/symptom? @ -Abdominal pain in Acute, or Chronic, or Acute on Chronic? @ -Acute Uncomplicated (without systemic symptoms) or Complicated (systemic symptoms)? @ -Uncomplicated Side effects of treatment? @ -No Exacerbation, Progression, or Severe Exacerbation? @ -No Poses a threat to life or bodily function? How? (Chest pain, [place], [place], pneumonia, PE, COPD, DKA, ARF, appy, cholecystitis, CVA, Diverticulitis, Homicidal, Suicidal, threat to staff... and all critical care pts) @ -Low likelihood - Lab Data Result diagrams: 10/27/23 22:28 10/27/23 22:28 Lab Results 10/27/23 10/27/23 10/27/23 Range/Units 22:28 22:28 22:28 WBC 13.8 H (3.8-10.6) k/uL RBC 4.26 (3.80-5.40) m/uL Hgb 13.4 (11.4-16.0) gm/dL Hct 38.5 (34.0-46.0) % MCV 90.5 (80.0-100.0) fL MCH 31.5 (25.0-35.0) pg MCHC 34.8 (31.0-37.0) g/dL RDW 13.7 (11.5-15.5) % Plt Count 233 (150-450) k/uL MPV 7.5 Neutrophils % 78 % Lymphocytes % 17 % Monocytes % 3 % Eosinophils % 1 % Basophils % 0 % Neutrophils # 10.7 H (1.3-7.7) k/uL Lymphocytes # 2.3 (1.0-4.8) k/uL Monocytes # 0.4 (0-1.0) k/uL Eosinophils # 0.2 (0-0.7) k/uL Basophils # 0.0 (0-0.2) k/uL PT 9.6 L (10.0-12.5) sec INR 0.9 (<1.2) APTT 25.2 (22.0-30.0) sec Sodium (137-145) mmol/L Potassium (3.5-5.1) mmol/L Chloride (98-107) mmol/L Carbon Dioxide (22-30) mmol/L Anion Gap mmol/L BUN (7-17) mg/dL Creatinine (0.52-1.04) mg/dL Est GFR (CKD-EPI)AfAm (>60 ml/min/1.73 sqM) Est GFR (CKD-EPI)NonAf (>60 ml/min/1.73 sqM) Glucose (74-99) mg/dL Calcium (8.4-10.2) mg/dL Total Bilirubin (0.2-1.3) mg/dL AST (14-36) U/L ALT (4-34) U/L Alkaline Phosphatase (38-126) U/L Total Protein (6.3-8.2) g/dL Albumin (3.5-5.0) g/dL HCG, Quant mIU/mL Urine Color Light Yellow Urine Appearance Clear (Clear) Urine pH 6.5 (5.0-8.0) Ur Specific [place] 1.015 (1.001-1.035) Urine Protein Negative (Negative) Urine Glucose (UA) Negative (Negative) Urine Ketones Negative (Negative) Urine Blood Negative (Negative) Urine Nitrite Negative (Negative) Urine Bilirubin Negative (Negative) Urine Urobilinogen <2.0 (<2.0) mg/dL Ur Leukocyte Esterase Moderate (Negative) Urine RBC 1 (0-5) /hpf Urine WBC 6 H (0-5) /hpf Ur Squamous Epith Cells 13 H (0-4) /hpf Urine Bacteria Occasional H (None) /hpf Urine Mucus Rare H (None) /hpf Blood Type Blood Type Recheck Bld Type Recheck Status 10/27/23 10/27/23 Range/Units 22:28 22:28 WBC (3.8-10.6) k/uL RBC (3.80-5.40) m/uL Hgb (11.4-16.0) gm/dL Hct (34.0-46.0) % MCV (80.0-100.0) fL MCH (25.0-35.0) pg MCHC (31.0-37.0) g/dL RDW (11.5-15.5) % Plt Count (150-450) k/uL MPV Neutrophils % % Lymphocytes % % Monocytes % % Eosinophils % % Basophils % % Neutrophils # (1.3-7.7) k/uL Lymphocytes # (1.0-4.8) k/uL Monocytes # (0-1.0) k/uL Eosinophils # (0-0.7) k/uL Basophils # (0-0.2) k/uL PT (10.0-12.5) sec INR (<1.2) APTT (22.0-30.0) sec Sodium 135 L (137-145) mmol/L Potassium 3.6 (3.5-5.1) mmol/L Chloride 107 (98-107) mmol/L Carbon Dioxide 16 L (22-30) mmol/L Anion Gap 12 mmol/L BUN 8 (7-17) mg/dL Creatinine 0.37 L (0.52-1.04) mg/dL Est GFR (CKD-EPI)AfAm >90 (>60 ml/min/1.73 sqM) Est GFR (CKD-EPI)NonAf >90 (>60 ml/min/1.73 sqM) Glucose 81 (74-99) mg/dL Calcium 9.5 (8.4-10.2) mg/dL Total Bilirubin 0.6 (0.2-1.3) mg/dL AST 20 (14-36) U/L ALT 10 (4-34) U/L Alkaline Phosphatase 52 (38-126) U/L Total Protein 7.2 (6.3-8.2) g/dL Albumin 4.2 (3.5-5.0) g/dL HCG, Quant 48565.2 mIU/mL Urine Color Urine Appearance (Clear) Urine pH (5.0-8.0) Ur Specific [place] (1.001-1.035) Urine Protein (Negative) Urine Glucose (UA) (Negative) Urine Ketones (Negative) Urine Blood (Negative) Urine Nitrite (Negative) Urine Bilirubin (Negative) Urine Urobilinogen (<2.0) mg/dL Ur Leukocyte Esterase (Negative) Urine RBC (0-5) /hpf Urine WBC (0-5) /hpf Ur Squamous Epith Cells (0-4) /hpf Urine Bacteria (None) /hpf Urine Mucus (None) /hpf Blood Type O Positive Blood Type Recheck O Pos Bld Type Recheck Status No Disposition Clinical Impression: Abdominal pain in Disposition: HOME SELF-CARE Condition: Good Instructions (If sedation given, give patient instructions): Abdominal Pain in (ED) Additional Instructions: Follow up with QA DEVELOPER. Report back to ER with any new or worsening symptoms. Prescriptions: Ondansetron Odt [Zofran Odt] 4 mg PO Q8HR PRN #20 tab PRN Reason: Nausea Is patient prescribed a controlled substance at d/c from ED?: No Referrals: None,Stated [REFERRING] - 1-2 days Alba Gregory MD [Primary Care Provider] - 1-2 days Time of Disposition: 01:58
[2023-10-28] MEDS ORDERED: ACETAMINOPHEN TAB 325 MG TAB PO STA (01:59)
== END 2023-10-28 02:17 | disposition home or self-care (01) ==
LOC: EC 21:22
DX: O26.892 Other specified pregnancy related conditions, second trimester (principal); R10.30 Lower abdominal pain, unspecified; Z3A.18 18 weeks gestation of pregnancy; Z88.0 Allergy status to penicillin; Z91.013 Allergy to seafood; Z90.49 Acquired absence of other specified parts of digestive tract
CPT/HCPCS: 36415; 76805; 80053; 81001; 84702; 85025; 85610; 85730; 86900; 86901; 99284

== ENCOUNTER 2023-12-05 19:23 | Emergency (ER) | payer OTHER ==
[2023-12-05 19:33] VITALS: BP 100/59; PULSE 77; RESP 18; TEMP 97.8
--- NOTE | 2023-12-05 19:34 | ED ---
General Adult HPI - General Source: patient, RN notes reviewed Mode of arrival: ambulatory Limitations: no limitations <Alisha Villa - Last Filed: 12/05/23 19:33> <Kishan Proctor - Last Filed: 12/05/23 23:09> - General Chief complaint: Extremity Problem,Nontraumatic Stated complaint: Possible blood clot in bilateral legs Time Seen by Provider: 12/05/23 19:33 - History of Present Illness Initial comments: 28-year-old female presents to the emergency department for bilateral calf pain. Patient is 23 weeks . Patient reports that she was told to come in for evaluation and DVT rule out. (Alisha Villa) This 28-year-old female presents with complaint of bilateral calf pain. She states that it just came on yesterday. She is approximately 23 weeks . She denies any known overuse or trauma. She denies any chest pain or shortness of breath. There is no history of DVT or PE. She was worried about the possibility of a blood clot. No other complaints or modifying factors. (Kishan Proctor) - Related Data Home Medications Medication Instructions Recorded Confirmed Pnv No.95/Ferrous Fum/Folic AC 1 each PO DAILY 03/12/22 04/19/22 [ Multivitamin Tablet] Sertraline [Zoloft] 25 mg PO BID 03/12/22 04/19/22 Previous Rx's Medication Instructions Recorded Ibuprofen [Motrin] 600 mg PO Q6HR PRN #60 tab 04/20/22 Ondansetron Odt [Zofran Odt] 4 mg PO Q8HR PRN #20 tab 10/28/23 Allergies Allergy/AdvReac Type Severity Reaction Status Date / Time Penicillins Allergy Unknown Verified 12/05/23 19:27 Childhood shellfish derived [Shellfish] Allergy Rash/Hives Verified 12/05/23 19:27 Review of Systems ROS Other: All systems not noted in ROS Statement are negative. <Alisha Villa - Last Filed: 12/05/23 19:33> ROS Other: All systems not noted in ROS Statement are negative. <Kishan Proctor - Last Filed: 12/05/23 23:09> ROS Statement: Those systems with pertinent positive or pertinent negative responses have been documented in the HPI. Past Medical History Past Medical History: Asthma Additional Past Medical History / Comment(s): PTSD; Hx cleft palate History of Any Multi-Drug Resistant Organisms: None Reported Past Surgical History: Cholecystectomy Additional Past Surgical History / Comment(s): Repair of cleft palate; R. salpingectomy Past Anesthesia/Blood Transfusion Reactions: No Reported Reaction Past Psychological History: PTSD Smoking Status: Never smoker Past Alcohol Use History: None Reported Past Drug Use History: None Reported - Past Family History Father Family Medical History: Hyperlipidemia, Hypertension <Alisha Villa - Last Filed: 12/05/23 19:33> General Exam Limitations: no limitations <Alisha Villa - Last Filed: 12/05/23 19:33> <Kishan Proctor - Last Filed: 12/05/23 23:09> - General Exam Comments Initial Comments: Visual Physical Exam Vital signs reviewed General: Well-appearing, nontoxic, no acute distress. Head: Normocephalic, atraumatic Eyes: PERRLA, EOMI ENT: Airway patent Chest: Nonlabored breathing Skin: No visual rash, normal skin tone Neuro: Alert and oriented 3 Musculoskeletal: No gross abnormalities (Alisha Villa) GENERAL: The patient is well nourished and well hydrated. VITAL SIGNS: Heart rate, blood pressure, respiratory rate reviewed as recorded in nurse's notes. EYES: Pupils are round and reactive. Extraocular movements are intact. No conjunctival / lid redness or swelling. ENT: No external evidence of injury, swelling, or ecchymosis. Airway is patent. Throat is clear. NECK: Nontender. No swelling or evidence of injury. No subcutaneous emphysema. Trachea is midline. No thyroid mass. HEART: Regular rate and rhythm. Good peripheral pulses. LUNGS/CHEST: Breath sounds clear and equal bilaterally. No rales, rhonchi, or wheezes. No ecchymosis, subcutaneous emphysema, or tenderness. ABDOMEN: Abdomen soft without tenderness. No palpable masses or organomegaly. No peritoneal signs. No abdominal wall swelling or ecchymosis. EXTREMITIES: Minimal tenderness noted to bilateral calf. No swelling identified. Normal muscle tone and function. No thoracolumbar tenderness. NEUROLOGIC: Sensation is grossly intact. Cranial nerve exam reveals face is symmetrical, tongue is midline, speech is clear. SKIN: No abrasions or ecchymosis is noted. No induration or masses noted. PSYCHIATRIC: Alert and oriented. Appropriate behavior and judgment. ([email or web address]) Course Vital Signs 12/05/23 19:24 Temperature 97.8 F Pulse Rate 77 Respiratory 18 Rate Blood Pressure 100/59 O2 Sat by Pulse 97 Oximetry Medical Decision Making <Alisha Villa - Last Filed: 12/05/23 19:33> <Kishan Proctor - Last Filed: 12/05/23 23:09> - Medical Decision Making Quick note preformed by Alisha Villa PA-C (Alisha Villa) The patient was seen and examined. The bilateral lower extremity venous Doppler ultrasound is negative for any evidence of DVT. It is felt as though she likely does have a mild muscle strain. Tylenol is recommended. Oral fluids recommended. Close follow-up with primary care and OB recommended. Return parameters are discussed. Was pt. sent in by a medical professional or institution (RITO Pryor, SOLAR SYSTEMS DESIGNER, urgent care, hospital, or shelter...) When possible be specific @ -[No] Did you speak to anyone other than the patient for history (EMS, parent, family, police, friend...)? What history was obtained from this source @ -[No] Did you review nursing and triage notes (agree or disagree)? Why? @ -[I reviewed and agree with nursing and triage notes] Were old charts reviewed (outside hosp., previous admission, EMS record, old EKG, old radiological studies, urgent care reports/EKG's, shelter records)? Report findings @ -[No old charts were reviewed] Differential Diagnosis (chest pain, altered mental status, abdominal pain women, abdominal pain men, vaginal bleeding, weakness, fever, dyspnea, syncope, headache, dizziness, GI bleed, back pain, seizure, CVA, palpatations, mental health, musculoskeletal)? @ -DVT, muscle strain, muscle cramping, EKG interpreted by me (3pts min.). @ -[As above] X-rays interpreted by me (1pt min.). @ -[None done] CT interpreted by me (1pt min.). @ -[None done] U/S interpreted by me (1pt. min.). @ -[None done] What testing was considered but not performed or refused? (CT, X-rays, U/S, labs)? Why? @ -[None] What meds were considered but not given or refused? Why? @ -[None] Did you discuss the management of the patient with other professionals (professionals i.e. , PA, SOLAR SYSTEMS DESIGNER, lab, RT, psych nurse, social media sr strategy manager, inspector hairspring truing, teacher, aoc director combat operations officer, shelter case manager)? Give summary @ -[No] Was smoking cessation discussed for >3mins.? @ -[No] Was critical care preformed (if so, how long)? @ -[No] Were there social determinants of health that impacted care today? How? (Homelessness, low income, unemployed, alcoholism, drug addiction, tra nsportation, low edu. Level, literacy, decrease access to med. care, senior care, rehab)? @ -[No] Was there de-escalation of care discussed even if they declined (Discuss DNR or withdrawal of care, Hospice)? DNR status @ -[No] What co-morbidities impacted this encounter? (DM, HTN, Smoking, COPD, CAD, Cancer, CVA, ARF, Chemo, Hep., AIDS, mental health diagnosis, sleep apnea, morbid obesity)? @ - Was patient admitted / discharged? Hospital course, mention meds given and route, prescriptions, significant lab abnormalities, going to OR and other pertinent info. @ -Was discharged home. Undiagnosed new problem with uncertain prognosis? @ -[No] Drug Therapy requiring intensive monitoring for toxicity (Heparin, Nitro, Insulin, Cardizem)? @ -[No] Were any procedures done? @ -[No] Diagnosis/symptom? @ -Bilateral leg pain, leg cramps Acute, or Chronic, or Acute on Chronic? @ -Acute Uncomplicated (without systemic symptoms) or Complicated (systemic symptoms)? @ -Uncomplicated Side effects of treatment? @ -[No] Exacerbation, Progression, or Severe Exacerbation? @ -[No] Poses a threat to life or bodily function? How? (Chest pain, [place], [place], pneumonia, PE, COPD, DKA, ARF, appy, cholecystitis, CVA, Diverticulitis, Homicidal, Suicidal, threat to staff... and all critical care pts) @ -[No] (Kishan Proctor) Disposition <Alisha Villa - Last Filed: 12/05/23 19:33> Is patient prescribed a controlled substance at d/c from ED?: No Time of Disposition: 21:52 <Kishan Proctor - Last Filed: 12/05/23 23:09> Clinical Impression: Leg cramping, Disposition: HOME SELF-CARE Condition: Good Instructions (If sedation given, give patient instructions): Leg Cramps (ED) Additional Instructions: You may safely take tylenol during if needed for pain. Referrals: Alba Gregory MD [Primary Care Provider] - 1-2 days
--- NOTE | 2023-12-05 21:08 | US ---
EXAMINATION TYPE: US venous doppler duplex LE DATE OF EXAM: 12/05/2023 8:04 PM COMPARISON: NONE CLINICAL INDICATION: Female, 28 years old with history of pain; SIDE PERFORMED: Bilateral TECHNIQUE: Venous duplex examination of the bilateral lower extremities from the groin to the upper calf perform ed using B-mode, color flow and spectral analysis plus graded compression. VESSELS IMAGED: Common Femoral Vein Deep Femoral Vein Greater Saphenous Vein * Femoral Vein Popliteal Vein Small Saphenous Vein * Proximal Calf Veins (* superficial vessels) FINDINGS: RIGHT LOWER EXTREMITY: There is color flow, spontaneous and phasic flow with normal compressibility seen of the external nitesh ac vein, common femoral vein, greater saphenous vein, profunda, femoral vein, and popliteal vein. Pro ximal calf veins show normal compressibility. No thrombus is seen throughout the right lower extremi ty. LEFT LOWER EXTREMITY: There is color flow, spontaneous and phasic flow with normal compressibility seen of the external nitesh ac vein, common femoral vein, greater saphenous vein, profunda, femoral vein, and popliteal vein. Pro ximal calf veins show normal compressibility. No thrombus is seen throughout the left lower extremity . Right Leg: Negative for DVT Left Leg: Negative for DVT IMPRESSION: No DVT identified in either lower extremity.
== END 2023-12-05 22:20 | disposition home or self-care (01) ==
LOC: EC 19:23
DX: O26.892 Other specified pregnancy related conditions, second trimester (principal); M79.662 Pain in left lower leg; M79.661 Pain in right lower leg; O99.512 Diseases of the respiratory system complicating pregnancy, second trimester; J45.909 Unspecified asthma, uncomplicated; Z88.0 Allergy status to penicillin; Z91.013 Allergy to seafood; Z3A.23 23 weeks gestation of pregnancy
CPT/HCPCS: 93970; 99283

== ENCOUNTER 2024-01-30 20:14 | Outpatient (CLI) | payer OTHER ==
[2024-01-30] MEDS: LACTATED RINGERS 1,000 ML IV ONE (21:29)
[2024-01-30 21:36] LABS: Appearance,Urine Clear (Clear); Bacteria,Urine Rare /hpf; Bilirubin,Urine Negative (Negative); Blood,Urine Trace (Negative); Color,Urine Colorless; Glucose,Urine (UA) Negative (Negative); Ketones,Urine Negative (Negative); Leukocyte Esterase,Urine Moderate (Negative); Mucus,Urine Rare /hpf; Nitrite,Urine Negative (Negative); Protein,Urine Negative (Negative); RBC,Urine 1 /hpf (0-5); Specific Gravity,Urine 1.007 (1.001-1.035); Squamous Epithelial Cell,Urine 7 /hpf (0-4); Urobilinogen,Urine <2.0 mg/dL (<2.0); WBC,Urine 3 /hpf (0-5)
[2024-01-30 23:00] VITALS: BP 114/68; PULSE 85; RESP 16
--- NOTE | 2024-02-03 21:00 | P.MSEPDOC ---
Presenting Problems - Arrival Data Date of Arrival on Unit: 01/30/24 Time of Arrival on Unit: 20:14 Mode of Transport: Ambulatory - Complaint OB-Reason for Admission/Chief Complaint: Other Comment: [facility]iness and lightheadedness x4 days, cramping x2 hours. Pt appears to be short of breath and has a dry cough. Pt states that she has a new diagnosis of asthma which she uses an inhaler every 4 hours for but that she believes that she lost her inhaler and has not used it today. Medical History - Information : 3 Para: 1 Term: 1 : 0 Abortions: Spontaneous or Elective: 1 Number of Living Children: 1 - Gestational Age Gestational Age by RADHA (wks/days): 31 Weeks and 3 Days Review of Systems - Review of Systems Constitutional: No problems Breast: No problems ENT: Cough Cardiovascular: No problems Respiratory: LALO, Wheezing Gastrointestinal: No problems Genitourinary: No problems Musculoskeletal: No problems Neurological: No problems, Dizziness Skin: No problems Vital Signs - Pulse Right Pulse Oximetery Pulse Rate: 85 Pulse Assessment Method: Pulse Oximetry - Respirations Respiratory Rate: 16 Oxygen Delivery Method: Room Air O2 Sat by Pulse Oximetry: 99 - Blood Pressure Right Arm Blood Pressure: 114/68 Blood Pressure Mean: 83 Blood Pressure Source: Automatic Cuff Medical Screen Scoring - Uterine Contractions Frequency From (mins): 2 Frequency To (mins): 5 Duration From (seconds): 50 Duration To (seconds): 80 Intensity: Mild Resting: Soft to palpation - Assessment - Baby A Baseline FHR: 145 Heart Rate - NICHD Category: Category II (Indeterminate) NST: Reactive Physician Notification - Physician Notified Physician Notified Date: 01/30/24 Physician Notified Time: 20:58 Physician: Alba Gregory New Order Received: Yes - Notification Comment Comment: Called Dr. Gregory, reported on pt complaints of dizziness x4 days and cramping x2 hours, GA,G/P, hx of "Circulation issues" pt frequently gets swelling in legs, pneumonia in september and new diagnosis of Asthma. Reviewed physical assessment including wheezing in pt right lung, dry cough, complaints of lightheadedness and dizziness. FHT reviewed, contraction pattern reviewed along with cervical exam. Orders for 1L LR bolus and UA. If UA normal, pt may be discharged home Maternal Triage Index - Maternal Triage Index Presenting for scheduled procedure w/no complaint: No - Stat/Priority 1 Stat Priority 1: No - Urgent/Priority 2 Urgent Priority 2: Yes Provider Notified: Alba Gregory Provider Notified Time: 20:58 Criteria Met for Priority 2: [facility] and lightheadedness x4 days, cramping x2 hours. Pt appears to be short of breath and has a dry cough. Pt states that she has a new diagnosis of asthma which she uses an inhaler every 4 hours for but that she believes that she lost her inhaler and has not used it today. Disposition - Disposition OB Disposition: Discharge to home Discharge Date: 01/30/24 Discharge Time: 22:30 I agree with the RN Medical Screening Exam: Yes Physician's MSE Comment: I have neither seen nor examined the patient Case reviewed; plan agreed upon as documented in EMR&OBIX.: Yes Diagnosis: DEHYDRATION
== END 2024-01-30 22:30 | disposition home or self-care (01) ==
LOC: FBPOP 20:14
PROVIDERS: ATTEND Obstetrics & Gynecology
DX: O21.1 Hyperemesis gravidarum with metabolic disturbance (principal); Z3A.31 31 weeks gestation of pregnancy; Z88.0 Allergy status to penicillin; Z91.013 Allergy to seafood
CPT/HCPCS: 59025; 81001; 96360; 99214

== ENCOUNTER 2024-03-05 13:36 | Outpatient (CLI) | payer OTHER ==
[2024-03-05 14:21] VITALS: BP 123/56; PULSE 88; RESP 16; TEMP 97.4
--- NOTE | 2024-04-13 16:30 | P.MSEPDOC ---
Presenting Problems - Arrival Data Date of Arrival on Unit: 03/05/24 Time of Arrival on Unit: 13:36 Mode of Transport: Ambulatory - Complaint OB-Reason for Admission/Chief Complaint: Rule Out PROM Comment: clear gush 1200 Medical History - Information : 3 Para: 1 Term: 1 : 0 Abortions: Spontaneous or Elective: 1 Number of Living Children: 1 - Gestational Age Gestational Age by RADHA (wks/days): 36 Weeks and 3 Days Review of Systems - Review of Systems Constitutional: No problems Breast: No problems ENT: No problems Cardiovascular: No problems Respiratory: No problems Gastrointestinal: No problems Genitourinary: No problems Musculoskeletal: No problems Neurological: No problems Skin: No problems Vital Signs - Temperature Temperature: 97.4 F Temperature Source: Temporal Artery Scan - Pulse Right Pulse Rate: 88 Pulse Assessment Method: Automatic Cuff - Respirations Respiratory Rate: 16 Oxygen Delivery Method: Room Air O2 Sat by Pulse Oximetry: 98 - Blood Pressure Right Arm Sitting Blood Pressure: 123/56 Blood Pressure Mean: 78 Blood Pressure Source: Automatic Cuff Medical Screen Scoring - Cervical Exam Dilation (cm): 1 Effacement (%): 50 Station: -3 Membranes: Intact - Uterine Contractions Frequency From (mins): 4 Frequency To (mins): 6 Duration From (seconds): 60 Duration To (seconds): 90 Intensity: Mild Resting: Soft to palpation - Assessment - Baby A Baseline FHR: 130 Heart Rate - NICHD Category: Category I (Normal) NST: Reactive Physician Notification - Physician Notified Physician Notified Date: 03/05/24 Physician Notified Time: 14:28 Physician: Alba Gregory New Order Received: Yes (discharge) - Notification Comment Comment: amnisure negative Maternal Triage Index - Maternal Triage Index Presenting for scheduled procedure w/no complaint: No - Stat/Priority 1 Stat Priority 1: No - Urgent/Priority 2 Urgent Priority 2: Yes Provider Notified: Alba Gregory Provider Notified Time: 14:28 Criteria Met for Priority 2: 36.3 rule out SROM clear fluid 1200 Disposition - Disposition OB Disposition: Triage, Discharge to home, Written follow up instructions reviewed Discharge Date: 03/05/24 Discharge Time: 14:37 I agree with the RN Medical Screening Exam: Yes Physician's MSE Comment: I have neither seen nor examined the patient Case reviewed; plan agreed upon as documented in EMR&OBIX.: Yes Diagnosis: MATERNAL CARE FOR PROBLEM, UNSP, THIRD * DO NOT USE *
== END 2024-03-05 14:37 | disposition home or self-care (01) ==
LOC: FBPOP 13:36
PROVIDERS: ATTEND Obstetrics & Gynecology
DX: O47.03 False labor before 37 completed weeks of gestation, third trimester (principal); Z3A.36 36 weeks gestation of pregnancy; Z88.0 Allergy status to penicillin; Z91.013 Allergy to seafood
CPT/HCPCS: 59025; 84112; 99213

== ENCOUNTER 2024-04-02 06:05 | Inpatient (IN) | payer OTHER ==
[2024-04-02] MEDS ORDERED: LIDOCAINE 0.5% (PF) 5 MG/ML (50 ML SDV) SQ PRN (06:24)
[2024-04-02] MEDS ORDERED: CARBOPROST TROMETHAMINE 250 MCG/ML 1 ML AMP IM PRN (06:24)
[2024-04-02] MEDS ORDERED: TRANEXAMIC 1,000 MG/100ML-NACL 1,000 MG in EMPTY BAG 1 BAG IV PRN (06:24)
[2024-04-02] MEDS ORDERED: TERBUTALINE 1 MG/ML VIAL SQ PRN (06:24)
[2024-04-02] MEDS ORDERED: METHYLERGONOVINE 0.2 MG/ML 1 ML AMP IM PRN (06:24)
[2024-04-02] MEDS ORDERED: OXYTOCIN 10 UNIT/ML 1 ML VIAL IM PRN (06:24)
[2024-04-02] MEDS ORDERED: miSOPROStoL 200 MCG TAB PO PRN (06:24)
[2024-04-02] MEDS: LACTATED RINGERS 1,000 ML IV SCH ×2 (06:47→16:05)
[2024-04-02 07:01] LABS: Basophils % (A) 0 %; Eosinophils # (A) 0.2 k/uL (0-0.7); Eosinophils % (A) 1 %; HCT 35.3 % (34.0-46.0); HGB 11.5 gm/dL (11.4-16.0); Lymphocytes # (A) 2.5 k/uL (1.0-4.8); Lymphocytes % (A) 21 %; MCH 30.8 pg (25.0-35.0); MCHC 32.5 g/dL (31.0-37.0); MCV 94.8 fL (80.0-100.0); Mean Platelet Volume 8.8; Monocytes # (A) 0.7 k/uL (0-1.0); Monocytes % (A) 6 %; Neutrophils # (A) 8.4 k/uL (1.3-7.7); Neutrophils % (A) 70 %; Platelet Count 209 k/uL (150-450); RBC 3.73 m/uL (3.80-5.40); RDW 14.3 % (11.5-15.5)
[2024-04-02] MEDS: OXYTOCIN 30 UNITS/500 ML NS 30 UNIT in SALINE 1 500ML.BAG IV SCH (07:25)
[2024-04-02] MEDS ORDERED: fentaNYL (PF) 50 MCG/ML 5 ML AMP ONE (08:40)
[2024-04-02] MEDS ORDERED: ROPIVACAINE 5 MG/ML 30 ML VIAL ONE (08:40)
[2024-04-02] MEDS ORDERED: SODIUM CHLORIDE 0.9% 250 ML BAG ONE (08:40)
--- NOTE | 2024-04-02 08:42 | P.HPOB ---
History of Present Illness H&P Date: 04/02/24 Chief Complaint: Induction of labor Ms. Harmon is a 28 year old at 40 weeks and 3 days with EDC of 03/30/2024 by 7 week who presents for scheduled induction of labor for post-dates gestation. Her has been essentially uncomplicated. The patient does have a history of anxiety and depression for which she started Zoloft 25 mg around 12 weeks gestation. The patient also has a history of mild intermittent asthma for which she uses albuterol as needed. The fetus is measuring in the 22%ile based on a 34 week growth US. Obstetric history: 1 FTVD of male infant weighing 9#3oz at 41 weeks after induction of labor for post-dates, no complications work-up: blood type O positive, antibody negative, rubella immune, VDRL non-reactive, HBsAg negative, HIV negative, HCV Ab negative, gonorrhea negative, chlamydia negative, 1 hour GTT within normal limits, GBS negative. s/p TDap 01/07/24. Past Medical History Past Medical History: Asthma Additional Past Medical History / Comment(s): PTSD; Hx cleft palate History of Any Multi-Drug Resistant Organisms: None Reported Past Surgical History: Cholecystectomy Additional Past Surgical History / Comment(s): Repair of cleft palate; R. salpingectomy Past Anesthesia/Blood Transfusion Reactions: No Reported Reaction Past Psychological History: PTSD Smoking Status: Never smoker Past Alcohol Use History: None Reported Past Drug Use History: None Reported - Past Family History Father Family Medical History: Hyperlipidemia, Hypertension Medications and Allergies Home Medications Medication Instructions Recorded Confirmed Type Sertraline [Zoloft] 25 mg PO BID 03/12/22 04/02/24 History Albuterol Inhaler [Ventolin Hfa 1 puff INHALATION DAILY PRN 01/30/24 04/02/24 History Inhaler] Iron 18 mg PO DAILY 04/02/24 04/02/24 History Vit No.179/Iron/Folic 1 each PO DAILY 04/02/24 04/02/24 History [ Tablet] Allergies Allergy/AdvReac Type Severity Reaction Status Date / Time Penicillins Allergy Unknown Verified 04/02/24 06:21 Childhood shellfish derived [Shellfish] Allergy Rash/Hives Verified 04/02/24 06:21 Exam Vital Signs Pulse Resp BP Pulse Ox 04/02/24 06:20 96 16 119/76 97 Intake and Output 04/01/24 04/02/24 04/02/24 22:59 06:59 14:59 Other: Weight 83.461 kg Focused physical exam is performed. This is a healthy-appearing in no apparent distress. Breathing is non-labored. Abdomen is gravid and non-tender. Cervical exam is 5 cm, 70 effacement, -3 station. AROM is undertaken with lightly meconium stained fluid noted. Extremities non-tender and non-edematous. heart tones are Category I and tocometer is graphing contractions every 2- 4 minutes. Results Result Diagrams: 04/02/24 06:35 Abnormal Lab Results - Last 24 Hours (Table) 04/02/24 Range/Units 06:35 WBC 12.0 H (3.8-10.6) k/uL RBC 3.73 L (3.80-5.40) m/uL Neutrophils # 8.4 H (1.3-7.7) k/uL Assessment and Plan Assessment: 28 year old at 40 weeks and 3 days presenting for induction of labor Plan: Admit, clear liquid diet, pitocin per protocol, epidural prn, continuous EFM and tocometer, close monitoring of patient. Anticipate vaginal delivery. Time with Patient: Less than 30
[2024-04-02] MEDS ORDERED: NALBUPHINE 10 MG/ML (10 ML MDV) ONE (11:57)
[2024-04-02] MEDS ORDERED: OXYTOCIN 10 UNIT/ML 1 ML VIAL ONE (11:57)
[2024-04-02] MEDS ORDERED: ONDANSETRON 4 MG/2 ML VIAL ONE (11:57)
[2024-04-02] MEDS ORDERED: fentaNYL (PF) 50 MCG/ML 2 ML AMP ONE (11:57)
[2024-04-02] MEDS ORDERED: MORPHINE SULFATE (PF) 0.3 MG/0.3 ML SYR ONE (11:57)
[2024-04-02] MEDS ORDERED: KETOROLAC 30 MG/ML 1 ML VIAL ONE (11:57)
[2024-04-02] MEDS ORDERED: diphenhydrAMINE 50 MG/ML 1 ML VIAL ONE (11:57)
[2024-04-02] MEDS ORDERED: NALBUPHINE 10 MG/ML (10 ML MDV) IV PRN (12:29)
[2024-04-02] MEDS ORDERED: diphenhydrAMINE 50 MG/ML 1 ML VIAL IVP PRN ×3 (12:29→13:04)
[2024-04-02] MEDS ORDERED: NALOXONE 0.4 MG/ML 1 ML VIAL IV PRN ×2 (12:29→13:04)
[2024-04-02] MEDS ORDERED: diphenhydrAMINE 50 MG CAP PO PRN (13:04)
[2024-04-02] MEDS ORDERED: ZOLPIDEM 5 MG TAB PO PRN (13:04)
[2024-04-02] MEDS ORDERED: diphenhydrAMINE 25 MG CAP PO PRN (13:04)
[2024-04-02] MEDS ORDERED: MORPHINE PCA 50 MG/50 ML BAG IV PRN (13:04)
[2024-04-02] MEDS ORDERED: SIMETHICONE 80 MG CHEWABLE PO PRN (13:04)
[2024-04-02] MEDS ORDERED: METOCLOPRAMIDE 5 MG/ML 2 ML VIAL IVP PRN (13:04)
[2024-04-02] MEDS ORDERED: ONDANSETRON 4 MG/2 ML VIAL IVP PRN (13:04)
--- NOTE | 2024-04-02 13:04 | P.OP ---
Date of Procedure: 04/02/24 Preoperative Diagnosis: 1. 40 week IUP 2. Active Labor 3. Meconium-stained amniotic fluid 4. Brow presentation, mentum posterior Postoperative Diagnosis: Same Procedure(s) Performed: Primary Lower Transverse Section Implants: None Anesthesia: epidural Surgeon: Alba Gregory Track Maintainer #1: Sunil Arboleda Estimated Blood Loss (ml): 1,100 IV fluids (ml): 900 Urine output (ml): 450 (blood-tinged) Pathology: none sent Condition: stable Disposition: floor Indications for Procedure: Ms. Harmon is a 28 year old at 40 weeks and 3 days who resented to labor and delivery for induction of labor for postdates gestation. After rupture of membranes at 756 lightly meconium stained amniotic fluid was noted. As the patient progressed into active labor a face presentation was diagnosed. Position changes were attempted and the fetus did flex it had partially into a brow presentation. Mentum was noted to be posterior. The patient did progressed to 9 cm with a persistent brow presentation with mentum posterior. section was recommended for and maternal well being. The risks, benefits, and alternatives to section were discussed with the patient including risk of bleeding, infection, damage to surrounding structures including bladder/bowels/ureters, and post-operative VTE. The patient understands these risks and desires to proceed with section. Operative Findings: Brow presentation, mentum posterior. Meconium stained amniotic fluid noted. Viable female infant with apgars of 9/9 and weight of 7 pounds and 15 ounces (3590 grams). On initial exam, the is noted to have a cleft palate. Normal appearing uterus, fallopian tubes, and ovaries. Description of Procedure: The patient was taken to the operating room where spinal anesthesia was found to be adequate. Two grams of Ancef were given for infection prophylaxis. Vaginal prep was performed prior to the surgery. She was prepared and draped in the dorsal supine position with a leftward tilt. A Pfannenstiel skin incision was made with the scalpel. The incision was carried down to the fascia with a bovie. The fascia was incised and extended laterally with Trammell scissors. The superior aspect of the fascia was grasped with Cathy clamps. The underlying rectus muscle was dissected off sharply with Trammell scissors. In a similar fashion, the inferior aspect of the fascia was elevated with Cathy clamps and the rectus muscle and pyramidalis were dissected off. Excellent hemostasis was achieved with the bovie. The rectus muscle was in the midline down to the level of the pubic symphysis. Pre-peritoneal fatty tissue was bluntly dissected to expose the peritoneum. The peritoneum was found to be free of adherent bowel and entered sharply with Trammell scissors. The peritoneal incision was extended superiorly and inferiorly to the bladder reflection with good visualization of the bladder. The bladder blade was inserted and vesicouterine peritoneum was identified. Intraabdominal survey revealed scant, clear peritoneal fluid and the thinned-out lower uterine segment. The bladder blade was repositioned to keep the bladder out of the operative field. The lower uterine segment was incised with a scalpel. The amniotic sac was ruptured with an Allis clamp and clear fluid was noted. The uterine incision was extended bluntly with lateral and upward traction. The fetus was in a brow presentation with mentum posterior. The head was elevated out of the pelvis with special attention paid to avoid using the uterine incision as a fulcrum. Gentle fundal pressure was applied once the head was brought into the incision. The infant was delivered with no difficulty. The mouth and nose were suctioned with a bulb. The cord was clamped and cut. was noted to be spontaneously crying. The infant was handed off to the indoor landscaper/gardener. IV oxytocin was initiated to facilitate uterine contractions. The placenta was delivered intact with manual massage of uterine fundus. The uterus was then exteriorized and the inside of the uterus was gently wiped with a lap sponge to assure complete removal of placental membranes. The uterine incision was closed with a 0-Polysorb suture in a running locked fashion. A second imbricating layer of 0-Polysorb was placed along the incision. Additional figure of eight sutures along the incision were placed for hemostasis. Surgicel powder was also placed along the incision for bleeding prophylaxis. The ovaries and tubes were found to be normal. The uterus, tubes, and ovaries were then gently returned to the abdominal cavity. The blood clots and fluid were wiped out of the abdomen and pelvis with moist laparotomy sponges. The pelvis was copiously suction irrigated.The uterine incision was reinspected and excellent hemostasis was noted. The fascial layer was closed with a 0-Vicryl suture. The subcutaneous tissue was reapproximated with 2-0 Plain Gut. The skin was closed with 4-0 Monocryl in a subcuticular fashion. The patient tolerated the procedure well. All the counts were correct times two. The patient was taken to the recovery room in a stable condition.
[2024-04-02] MEDS: ACETAMINOPHEN TAB 500 MG TAB PO SCH (16:04)
[2024-04-02] MEDS: SENNOSIDES-DOCUSATE SODIUM 1 EACH TAB PO SCH (20:37)
[2024-04-02] MEDS: KETOROLAC 15 MG/ML 1 ML VIAL IVP SCH (20:37)
[2024-04-02] MEDS: ROPIVACAINE 225 MG, fentaNYL (PF). 450 MCG in SODIUM CHLORIDE 0.9% 171 ML EPIDURAL ONE (21:39)
[2024-04-02] MEDS: IBUPROFEN 600 MG TAB PO SCH (21:39)
[2024-04-03 08:27] LABS: Basophils % (A) 0 %; Eosinophils # (A) 0.1 k/uL (0-0.7); Eosinophils % (A) 1 %; HCT 24.9 % (34.0-46.0); HGB 8.8 gm/dL (11.4-16.0); Lymphocytes # (A) 1.6 k/uL (1.0-4.8); Lymphocytes % (A) 17 %; MCH 34.1 pg (25.0-35.0); MCHC 35.3 g/dL (31.0-37.0); MCV 96.4 fL (80.0-100.0); Mean Platelet Volume 9.2; Monocytes # (A) 0.6 k/uL (0-1.0); Monocytes % (A) 7 %; Neutrophils # (A) 6.8 k/uL (1.3-7.7); Neutrophils % (A) 73 %; Platelet Count 145 k/uL (150-450); RBC 2.58 m/uL (3.80-5.40); RDW 14.8 % (11.5-15.5); WBC 9.4 k/uL (3.8-10.6)
--- NOTE | 2024-04-03 08:40 | P.PNOBGPC ---
Subjective - Subjective Principal diagnosis: s/p primary section for brow presentation Interval history: The patient is doing well this morning and had no acute events overnight. She has no complaints this morning. She reports minimal lochia, passing flatus, ambulating, and eating/drinking without nausea or vomiting. She did require a straight catheterization around 0400 after the rueda catheter was removed. We are still awaiting spontaneous void. She is her without difficulty. She denies chest pain, shortness of breathing, fevers, or chills overnight. She denies pain or swelling in the legs. Patient reports: Reports appetite normal, Reports voiding normally, Reports pain well controlled, Reports ambulating normally [place]: doing well Objective - Vital Signs Latest vital signs: Vital Signs Temp Pulse Resp BP Pulse Ox 04/03/24 07:55 97.8 F 83 14 96/57 97 04/03/24 06:23 14 04/03/24 02:21 12 04/03/24 00:00 97.8 F 79 12 95/53 99 04/02/24 22:00 14 04/02/24 20:30 97.9 F 81 17 104/60 97 04/02/24 17:29 97 04/02/24 17:00 16 04/02/24 16:55 98.4 F 73 16 98/57 97 04/02/24 15:29 16 04/02/24 14:55 97.8 F 75 16 92/51 97 04/02/24 14:40 81 15 104/57 98 04/02/24 14:25 71 15 101/59 97 04/02/24 14:10 69 16 99/57 97 04/02/24 13:55 73 15 103/56 98 04/02/24 13:40 68 15 118/56 97 04/02/24 13:29 16 98 04/02/24 13:25 74 15 95/51 97 04/02/24 13:10 68 15 96/55 98 04/02/24 12:55 97.9 F 61 16 96/53 98 Intake and Output 04/02/24 04/03/24 04/03/24 22:59 06:59 14:59 Intake Total 1600 480 Output Total 450 400 Balance -450 1200 480 Intake: IV 1000 Oral 600 480 Output: Urine 450 400 Straight 400 Uretheral (Rueda) 300 Other: Voiding Method Indwelling Catheter # Voids 0 - Exam Extremities: Present: normal Abdomen: Present: normal appearance, soft Incision: Present: normal, dry, intact Uterus: Present: normal, firm - Labs Labs: Abnormal Lab Results - Last 24 Hours (Table) 04/03/24 Range/Units 07:38 RBC 2.58 L (3.80-5.40) m/uL Hgb 8.8 L D (11.4-16.0) gm/dL Hct 24.9 L (34.0-46.0) % Plt Count 145 L (150-450) k/uL Assessment and Plan Assessment: 28 year old now POD#1 s/p primary section 2/2 brow presentation in active labor Plan: 1. Postoperative. Await void. 2. Viable female infant. Doing well at bedside, nursing well. Does have cleft palate on exam. Dispo: Anticipate discharge home tomorrow. Continue inpatient care.
--- NOTE | 2024-04-03 10:34 | P.PN ---
Progress Note - Text Progress Note Date: 04/03/24 Ms. Harmon is a 28-year-old female had a history of under epidural. Patient received Astramorph 3mg at the end of the procedure for postoperative pain control. Today patient is comfortable sitting in her bed. Today patient rated her pain level 3 out of 10 in severity. Denied any fever, drowsiness, confusion. Denied any weakness, tingling sensation in her lower extremities. Denied any bowel or bladder problems. Moving all extremities without any difficulty, and able to walk without any difficulties. She is complaining of mild itching. As per patient which is bearable. Vitals: Hemodynamically stable Continue oral pain medication as per primary team. No complications related to anesthesia.
[2024-04-03] MEDS: FERROUS SULFATE 325 MG TAB PO SCH (14:41)
[2024-04-04 09:09] VITALS: BP 111/74; PULSE 83; RESP 16; TEMP 97.5
--- NOTE | 2024-04-04 09:34 | P.DS ---
Providers Date of admission: 04/02/24 06:05 Expected date of discharge: 04/04/24 Attending physician: Alba Gregory MD Primary care physician: Stated None - Discharge Diagnosis(es) (1) Acute blood loss anemia (ABLA) Current Visit: Yes Status: Acute (2) Brow presentation of fetus Current Visit: Yes Status: Acute (3) S/P primary low transverse Current Visit: Yes Status: Acute (4) 40 weeks gestation of Current Visit: No Status: Acute Hospital Course: This is a 28-year-old 2 now para 2 that presented to labor and delivery at 40-2/7 weeks for scheduled induction of labor. After rupture of membranes meconium stained fluid was noted. Patient did progress to active labor and a face presentation was noted. Patient was counseled on position and need for section secondary to malpresentation of mentum posterior. Patient was taken back for primary secondary to malpresentation. Viable female infant was delivered, weight of 7 pounds 15 ounces, Apgars of 9 and 9 at 1 and 5 minutes respectively. is noted to have a cleft palate. For full details on the please the dictated operative report. Patient's postoperative course has been uneventful. On this postoperative day #2 she is ambulating and voiding without difficulty. She is tolerating a regular diet without nausea or vomiting. Lochia is minimal. She states her pain is well-controlled. She denies concerns and would like discharge home. Patient Condition at Discharge: Good Plan - Discharge Summary New Discharge Prescriptions: New Acetaminophen Tab [Tylenol] 650 mg PO Q6H PRN #30 tab PRN Reason: Mild Pain (Scale 1 To 3) Ibuprofen [Motrin] 600 mg PO Q6HR PRN #30 tab PRN Reason: Mild Pain (Scale 1 To 3) oxyCODONE HCL [Roxicodone] 5 mg PO Q6HR PRN 3 Days #12 tab PRN Reason: Breakthrough Pain No Action Sertraline [Zoloft] 25 mg PO BID Albuterol Inhaler [Ventolin Hfa Inhaler] 1 puff INHALATION DAILY PRN PRN Reason: shortness of breath Vit No.179/Iron/Folic [ Tablet] 1 each PO DAILY Iron 18 mg PO DAILY Discharge Medication List Sertraline [Zoloft] 25 mg PO BID 03/12/22 [History] Albuterol Inhaler [Ventolin Hfa Inhaler] 1 puff INHALATION DAILY PRN 01/30/24 [History] Iron 18 mg PO DAILY 04/02/24 [History] Vit No.179/Iron/Folic [ Tablet] 1 each PO DAILY 04/02/24 [History] Acetaminophen Tab [Tylenol] 650 mg PO Q6H PRN #30 tab 04/03/24 [Rx] Ibuprofen [Motrin] 600 mg PO Q6HR PRN #30 tab 04/03/24 [Rx] oxyCODONE HCL [Roxicodone] 5 mg PO Q6HR PRN 3 Days #12 tab 04/03/24 [Rx] Follow up Appointment(s)/Referral(s): Alba Gregory MD [STAFF PHYSICIAN] - 05/12/24 8:30 am (Also needs 2 week incision check) Patient Instructions/Handouts: (DC), (GEN) Activity/Diet/Wound Care/Special Instructions: Instructions 1. Do not begin any exercise program for 3 weeks. 2. Do not resume sexual relations for 6 weeks or longer if uncomfortable. 3. You may take tub baths or showers at any time. 4. You may use tampons if desired after 6 weeks. 5. Keep any areas repaired with stitches clean and dry. 6. If you are not nursing, wear a good fitting, supportive bra during the day and limit fluid intake for at least 1 week to prevent breast engorgement. 7. Call the office, , within the next week to make appointment for your 6 week checkup if it has not already been made. 8. Report any of the following occurrences to the doctor promptly: a. Heavy, excessive bleeding b. Chills, fever c. Burning or frequency of urination d. Pain or redness and breasts if nursing e. Increasing pain or swelling of vulva (stitches). In addition to the above instructions, the following additional should be followed: 1. No heavy lifting or straining (exercising) until after 6 week checkup. 2. Keep abdominal incision clean and dry: You may wear a dressing if more comfortable. 3. Make office appointment for 2 weeks after delivery date. Discharge Disposition: HOME SELF-CARE
== END 2024-04-04 11:28 | disposition home or self-care (01) | DRG 787 ==
LOC: 4FBP 06:05
PROVIDERS: ADMIT Obstetrics & Gynecology; ATTEND Obstetrics & Gynecology
PROC: 10D00Z1 Extraction of Products of Conception, Low, Open Approach (ICD-10-PCS; principal; 2024-04-02 12:00)
DX: O48.0 Post-term pregnancy (principal); D62 Acute posthemorrhagic anemia; O99.02 Anemia complicating childbirth; O32.3XX0 Maternal care for face, brow and chin presentation, not applicable or unspecified; O77.0 Labor and delivery complicated by meconium in amniotic fluid; F43.10 Post-traumatic stress disorder, unspecified; J45.20 Mild intermittent asthma, uncomplicated; O99.344 Other mental disorders complicating childbirth; O99.52 Diseases of the respiratory system complicating childbirth; Z37.0 Single live birth; Z3A.40 40 weeks gestation of pregnancy; Z79.899 Other long term (current) drug therapy; Z82.49 Family history of ischemic heart disease and other diseases of the circulatory system
CPT/HCPCS: 85025; 86850; 86900; 86901